=== PATIENT | male | born 1975 ===

== ENCOUNTER 2024-11-06 13:14 | Emergency (ER) | payer OTHER ==
[~2024-11-06] VITALS: Ht 170.2 cm; Wt 79.4 kg
[~2024-11-06 13:14] MED LIST: Amoxicillin875 MG PO
[2024-11-06 13:52] VITALS: BP 148/86
[2024-11-06] MEDS ORDERED: Dexamethasone Sod Phos 10 MG/ML 1ML VIAL PO ONE (14:40)
== END 2024-11-06 15:13 | disposition home or self-care (01) ==
LOC: ER 13:14
DX: M75.01 Adhesive capsulitis of right shoulder (principal); Z79.2 Long term (current) use of antibiotics; F17.210 Nicotine dependence, cigarettes, uncomplicated; X50.0XXA Overexertion from strenuous movement or load, initial encounter
CPT/HCPCS: 99283; A9270; J1100